=== PATIENT | female | born 1950 | race Hispanic/Latino ===

== ENCOUNTER 2025-01-24 08:19 | Observation (INO) | payer OTHER ==
--- NOTE | 2025-01-22 11:00 | EKG ---
[facility] Test Date: 2025-01-22 Test Time: 10:54:29 Pat Name: JACKELINE DICKENS Department: [facility] Room: Gender: F Medical Historian: [id number] : 1950 Requested By: AILYN CAMARILLO Order Number: [id number] Reading MD: Ravin Molina Measurements Intervals [place] Rate: 82 P: 80 PA: 134 QRS: 71 QRSD: 80 T: 68 QT: 362 QTc: 422 Interpretive Statements Sinus rhythm with frequent premature ventricular complexes No previous ECG available for comparison Electronically Signed On 01-22-2025 12:03:47 CDT by Ravin Molina Please click the below link to view image of tracing.
[2025-01-22 11:10] VITALS: BP 171/74; PULSE 85; RESP 17; TEMP 97.1
[2025-01-22 11:16] LABS: CREATININE 0.6 mg/dL (0.5-1.0); GLOMERULAR FILTR. RATE CALC 95.0 mL/min (>90); GLUCOSE,RANDOM 115.0 mg/dL (70-105); SODIUM SERUM 137.0 mmol/L (136-145); UREA NITROGEN, BLOOD 12.0 mg/dL (7-18)
[2025-01-22 11:17] LABS: IMMATURE GRANULOCYTE ABSOLUTE 0.08 K/uL (0-1); NUCLEATED RED BLOOD CELLS 0.0 % (0.0-0.19); PLATELET COUNT (AUTO) 315 K/uL (130-400); RED BLOOD CELL COUNT(AUTO) 4.13 MIL/uL (4.00-5.50); RED CELL DISTRIBUTION WIDTH 13.0 % (11.0-15.5); WHITE BLOOD COUNT (AUTO) 10.5 K/uL (4.8-10.8)
[2025-01-22 11:19] LABS: INR 1.05 (0.85-1.15)
--- NOTE | 2025-01-22 11:44 | NUR ---
RE: IS INITIAL IS INITIAL TEACHING DONE DURING PREOP BY RT JERE.
[2025-01-22 12:01] LABS: APPEARANCE,URINE CLEAR (CLEAR); GLUCOSE, URINE (UA) NEGATIVE (NEGATIVE); LEUKOCYTE ESTERASE ,URINE 500 Leu/uL (NEGATIVE); NITRATE,URINE NEGATIVE (NEGATIVE); OCCULT BLOOD,URINE NEGATIVE (NEGATIVE)
[2025-01-22 12:14] LABS: ADD UA MICROSCOPIC YES
[2025-01-22 12:19] LABS: SQUAMOUS EPITHELIAL CELL,UR RARE /HPF (0-2)
--- NOTE | 2025-01-23 13:27 | NUR ---
RE: LABS REPORTED UA/URINE CX RESULTS TO DR CAMARILLO. RECEIVED ORDERS FOR GENTAMICIN 240MG IV PIGGY BACK X 1 DOSE IN OR HOLDING.
[2025-01-24] VITALS (22 sets, daily range): BP systolic 121–157; BP diastolic 65–86; PULSE 90–119; RESP 14–20; TEMP 97.1–98.3
[~2025-01-24] VITALS: Ht 157.5 cm; Wt 67.1 kg
[~2025-01-24 08:19] MED LIST: GABA-529 PO; LOSA25TA41 PO; PRAV20TA59 PO
[2025-01-24] MEDS ORDERED: [UNRECOGNIZED DRUG - OTHER] IM SCH (09:00)
[2025-01-24] MEDS ORDERED: GENTAMICIN SULFATE IM SCH (09:00)
[2025-01-24] MEDS ORDERED: GENTAmicin SULFate 80 MG/2 ML 240 MG in 0.9%NACL 100ML 100 ML IV SCH (09:00)
[2025-01-24] MEDS: GENTAmicin SULFate 80 MG/2 ML 240 MG in 0.9%NACL 100ML 100 ML IV SCH (09:16)
[2025-01-24] MEDS ORDERED: LIDOCAINE PF 100MG/5ML (2%) SYRINGE 5ML ONE ×2 (10:47→13:59)
[2025-01-24] MEDS ORDERED: MIDAZOLAM HCL 1 MG/ML 2ML VIAL ONE (10:48)
[2025-01-24] MEDS ORDERED: GLYCOPYRROLATE 0.2 MG/ML 5 ML VIAL ONE (10:51)
[2025-01-24] MEDS ORDERED: NEOSTIGMINE METHYLSULFATE 1MG/ML IV ONE (10:51)
[2025-01-24] MEDS ORDERED: TRANEXAMIC ACID 1000MG/10ML ONE (12:13)
[2025-01-24] MEDS ORDERED: VANCOMYCIN 500MG+NS 100ML 100 ML IV ONE (13:44)
[2025-01-24] MEDS ORDERED: PoTASSium chl 10% ELIXIR 20MEQ 20 MEQ/15 ML UDCUP PO PRN (17:00)
[2025-01-24] MEDS ORDERED: ALBUMIN (HUMAN) 5% 250 ML IV ONE (17:08)
--- NOTE | 2025-01-24 17:28 | OP ---
Operative Note: DATE OF PROCEDURE: 01/24/25 SURGEON: AILYN CAMARILLO MD GOLD PROSPECTOR: [Ravin Guevara CFA] ANESTHESIA: [General anesthesia plus regional block] ANESTHESIOLOGIST/COMPOSITE LAMINATOR: [Rno Palmer CRNA] PREOPERATIVE DIAGNOSIS: [Left hip osteoarthritis] POSTOPERATIVE DIAGNOSIS: [Left hip osteoarthritis] IMPLANTS: [BIOMET. Taper lock femur size 11. 36 mm minus three modular femoral head. G7 cup size 54 mm with 120 mm screw. G7 high wall liner.] ESTIMATED BLOOD LOSS: [300 mL] INDICATIONS: [The patient is an elderly 74-year-old female with a history of pain to the left hip secondary to osteoarthritis that has a longer responded to conservative treatment. The patient has been admitted for a left total hip arthroplasty. Procedure understood, risks, benefits and possible complications and the patient agreed to sign the consent form] DESCRIPTION OF PROCEDURE: [After adequate general anesthesia was achieved and regional block obtained the patient was placed in the right lateral decubitus with the use of the beanbag and hip holders. The left lower extremity was prepped and draped in the usual manner after x-rays taken with the C-arm were used to check the position of the pelvis. After anatomic landmarks were identified we proceeded to make an incision in the skin centered on the greater trochanter and with a slight curve posteriorly followed by dissection of the subcutaneous tissue with the use of the Bovie cautery. The tensor fascia angela and gluteus manuel fascia were then opened longitudinally and the fibers of the gluteus muscle were split manually entering into the deep space applying then the Charnley retractor. A bone infusion needle was then inserted in the grater trochanter and 500 mg of vancomycin mixed with 50m mL od NS were injected in the bone. After the trochar was removed, the posterior border of the gluteus medius was identified and elevated and a curved Hohmann retractor was inserted underneath to be able to expose the gluteus minimus and short external rotators. The interval between the piriformis and gluteus minimus was open with the use of the Bovie cautery and then the rotators and capsule were detached from their femoral neck insertion and retracted posteriorly entering into the hip joint. At this point a marker was applied in the iliac bone just superior to the acetabulum with the use of drill guide to be able to check the offset and the length of the extremity at the level of the trochanter. Once the marker was made this was passed to the back table. We then proceeded to dislocate the hip by flexing and then internally rotating it and after retractors were applied to the base of the femoral neck we proceeded to use the oscillating saw to cut the neck at this level. At this point we removed the last broach and packed the canal for hemostasis and after the retractors were removed we proceeded then to bring the hip into extension. Hohmann retractors were then applied anteriorly and posteriorly to the acetabulum removing then the labrum and foveal tissue. We proceeded to ream the acetabulum medializing it obtaining adequate cortico- cancellous bone. After irrigation was of the acetabulum was completed we proceeded then to apply the final component and x-rays were taken correcting the orientation of the acetabulum to its final position. A cancellous aceabular screw was placed to secure the component and a trial liner was inserted. We then proceeded to use a box osteotome to enter the canal followed by insertion of the canal finder and then we proceeded to broach from size up to above-mentioned size. The trial femur and the trial femoral heads were applied, reducing the hip and taken x-rays until we identify the adequate size component using the marker to check the length and offset as well as clinically using the shuck test and measuring the leg length. Once we were satisfied we proceeded to remove the components from the femur and the trial liner after dislocating the hip and after copious irrigation of the joint was completed we then proceeded to apply t he final liner followed by the insertion of the final femoral stem femoral head. Once the hip was reduced we used a marker once again and the leg length and offset were normal and clinically the patient had normal length, negative shuck test and x-rays reveal adequate leg length compared to the opposite hip. The joint was then copiously irrigated with a diluted Betadine solution followed by irrigation with antibiotic solution with jet lavage once again and we then proceeded to take final x-rays and then to close the wound first with approximation of the capsule with #1 Vicryl simple stitches followed by approximation of the short external rotators with #2 PDS suture passing the sutures through the bone. The Charnley retractor was then removed and the glu teus manuel fascia was closed with a #1 Vicryl running stitch and the tensor fascia angela with #1 Vicryl crossed stitches. The subcutaneous tissue was closed with #2 Monocryl inverted stitches and the skin was closed with 3-0 Monocryl subcuticularly. A suction dressing was then applied to the incision and the drapes were then removed the patient being placed in the supine position. Leg length was checked and noted to be adequate. The patient was then transferred to a hospital bed and taken to recovery room for follow-up by anesthesia. There were no complications during the procedure.] AILYN CAMARILLO MD Jan 24, 2025 17:28
--- NOTE | 2025-01-24 18:30 | NUR ---
arrived from recovery vitals stable, 2L via nasal cannula 99%, family at bedside, patient alert and oriented x4, moderate pain to left hip
--- NOTE | 2025-01-24 18:36 | HMCIMG ---
EXAMINATION: Left hip COMPARISON: None provided. HISTORY: LT total hip arthroplasty FINDINGS: 3 fluoroscopic images were provided during left hip arthroplasty. Correlation with the operative report is recommended. IMPRESSION: As above. /[place]
[2025-01-24] MEDS: GENTAmicin SULFate 80 MG/2 ML 240 MG in 0.9%NACL 100ML 100 ML IV ONE (18:56)
[2025-01-24] MEDS: LACTATED RINGERS 1000ML 1,000 ML IV ONE (19:00)
[2025-01-24] MEDS: 0.9%NACL 1000ML 1,000 ML IV SCH (19:00)
[2025-01-24] MEDS: HYDROcodone/APAP 5/325 1 TAB TABLET PO PRN (19:18)
--- NOTE | 2025-01-24 19:30 | NUR ---
ASSESSMENT NOTE/TEACHING PATIENT AWAKE, ALERT, OX3, FAMILY AT BEDSIDE,OXYGEN AT 2 L N/C, ENCOURAGE DEEP BREATHING EXERCISES, IVF INFUSING WELL, DRESSING LEFT HIP WITH HOLLEY DRESSING WITH NEGATIVE PRESSURE, LEFT HIP APPLY ICE PACKS,BLE SCDS IN PLACE,ENCOURAGE DORSIFLEXION BLE,TEACH PATIENT AND FAMILY PLAN OF CARE, PAIN ,MANAGEMENT AND EXPECTED OUTCOME, BOTH VERBALIZE UNDERSTANDING VIA TEACH BACK
[2025-01-24] MEDS: ASPIRIN 81 MG EC TAB PO SCH (20:20)
[2025-01-25] VITALS (7 sets, daily range): BP systolic 108–147; BP diastolic 51–82; PULSE 93–116; RESP 17–20; TEMP 97.6–98.9; O2SAT 96
--- NOTE | 2025-01-25 05:00 | NUR ---
DAVIDA HIGUERA PATIENT AT BEDSIDE TOLERATED WELL, ICE PACK TO LEFT HIP, HOLLEY DRESSING LEFT HIP INTACT WITH NEGATIVE PRESSURE
[2025-01-25 05:01] LABS: NUCLEATED RED BLOOD CELLS 0.0 % (0.0-0.19); PLATELET COUNT (AUTO) 211.0 K/uL (130-400); RED BLOOD CELL COUNT(AUTO) 2.8 MIL/uL (4.00-5.50); RED CELL DISTRIBUTION WIDTH 13.1 % (11.0-15.5); WHITE BLOOD COUNT (AUTO) 7.8 K/uL (4.8-10.8)
[2025-01-25 05:26] LABS: CREATININE 0.7 mg/dL (0.5-1.0); GLOMERULAR FILTR. RATE CALC 91.0 mL/min (>90); GLUCOSE,RANDOM 109.0 mg/dL (70-105); SODIUM SERUM 137.0 mmol/L (136-145); UREA NITROGEN, BLOOD 11.0 mg/dL (7-18)
--- NOTE | 2025-01-25 08:14 | PN ---
Ortho postop day one. The patient is awake alert and oriented. She is seated in a chair enjoying her breakfast. Reports adequate pain control. Vital signs have been stable. Afebrile. Voiding on her own. Laboratory results reviewed. Noted to have a drop in hemoglobin and hematocrit as expected after total hip arthroplasty. Patient is currently asymptomatic but we will continue to observe and address per protocol as necessary. Reinforced incentive spirometry. Dressing is intact. Danyelle dressing flashing green. Lower extremities with the SCD sleeves currently present but not on. She is pending physical therapy this morning. Anticipated discharge goal is skilled nurse facility. Assessment: Status post left total hip arthroplasty. Acute postoperative blood loss anemia addressed with the protocol as necessary. Plan: Continue with Dr. Colbert total hip arthroplasty protocol and discharge planning. Acute postoperative blood loss anemia addressed with the protocol Vitals/Labs Vital Signs Date Time Temp Pulse Resp B/P (MAP) Pulse Ox O2 Delivery O2 Flow Rate FiO2 01/25/25 04:00 98.2 116 20 143/72 99 Nasal Cannula 2.0 01/24/25 20:00 28 Laboratory Tests 01/25/25 04:27 Medications Current Medications Gentamicin Sulfate 240 each ONCE ONCE IV; Start 01/24/25 at 07:00; Stop 01/23/25 at 13:28; Status DC Gentamicin Sulfate 240 mg/ Sodium Chloride 100 ml @ 200 mls/hr ONCE ONCE IV; Start 01/24/25 at 07:00; Stop 01/24/25 at 07:29; Status DC Cefazolin Sodium 2 gm STK-MED ONCE .ROUTE; Start 01/24/25 at 08:39; Stop 01/24/25 at 08:39; Status DC Lactated Ringer's 1,000 ml @ As Directed STK-MED ONCE IV; Start 01/24/25 at 08:39; Stop 01/24/25 at 08:39; Status DC Gentamicin Sulfate 180 mg/ Sodium Chloride 100 ml @ 200 mls/hr Q12H IM; Start 01/24/25 at 09:00; Stop 01/26/25 at 08:59; Status Cancel Gentamicin Sulfate 240 mg/ Sodium Chloride 100 ml @ 200 mls/hr Q12H IV; Start 01/24/25 at 09:00; Stop 01/24/25 at 08:52; Status DC Gentamicin Sulfate 240 mg/ Sodium Chloride 100 ml @ 200 mls/hr ONCE IV Last administered on 01/24/25at 09:16; Start 01/24/25 at 09:00; Stop 01/24/25 at 12:00; Status DC Lidocaine HCl 100 mg STK-MED ONCE .ROUTE; Start 01/24/25 at 10:47; Stop 01/24/25 at 10:47; Status DC Propofol 200 mg STK-MED ONCE IV; Start 01/24/25 at 10:48; Stop 01/24/25 at 10:48; Status DC Midazolam HCl 2 mg STK-MED ONCE .ROUTE; Start 01/24/25 at 10:48; Stop 01/24/25 at 10:48; Status DC Fentanyl Citrate 100 mcg STK-MED ONCE .ROUTE; Start 01/24/25 at 10:49; Stop 01/24/25 at 10:49; Status DC Ondansetron HCl 4 mg STK-MED ONCE .ROUTE; Start 01/24/25 at 10:49; Stop 01/24/25 at 10:49; Status DC Dexamethasone Sodium Phosphate 10 mg STK-MED ONCE .ROUTE; Start 01/24/25 at 10:49; Stop 01/24/25 at 10:49; Status DC Rocuronium [place] 50 mg STK-MED ONCE .ROUTE; Start 01/24/25 at 10:49; Stop 01/24/25 at 10:49; Status DC Glycopyrrolate 1 mg STK-MED ONCE .ROUTE; Start 01/24/25 at 10:51; Stop 01/24/25 at 10:51; Status DC Neostigmine Methylsulfate 10 mg STK-MED ONCE IV; Start 01/24/25 at 10:51; Stop 01/24/25 at 10:51; Status DC Phenylephrine HCl 10 mg STK-MED ONCE IV; Start 01/24/25 at 10:51; Stop 01/24/25 at 10:51; Status DC Tranexamic Acid 1,000 mg STK-MED ONCE .ROUTE; Start 01/24/25 at 12:13; Stop 01/24/25 at 12:14; Status DC Cefazolin Sodium 1 gm STK-MED ONCE .ROUTE; Start 01/24/25 at 12:14; Stop 01/24/25 at 12:14; Status DC Fentanyl Citrate 100 mcg STK-MED ONCE .ROUTE; Start 01/24/25 at 13:39; Stop 01/24/25 at 13:40; Status DC Vancomycin HCl 100 ml @ As Directed STK-MED ONCE IV; Start 01/24/25 at 13:44; Stop 01/24/25 at 13:44; Status DC Lidocaine HCl 100 mg STK-MED ONCE .ROUTE; Start 01/24/25 at 13:59; Stop 01/24/25 at 14:00; Status DC Propofol 200 mg STK-MED ONCE IV; Start 01/24/25 at 14:21; Stop 01/24/25 at 14:21; Status DC Rocuronium [place] 50 mg STK-MED ONCE .ROUTE; Start 01/24/25 at 14:28; Stop 01/24/25 at 14:28; Status DC Cefazolin Sodium 2 gm STK-MED ONCE IVPB Last administered on 01/24/25at 14:00; Start 01/24/25 at 14:00; Stop 01/24/25 at 15:04; Status DC Tranexamic Acid 1,000 mg STK-MED ONCE IV Last administered on 01/24/25at 14:15; Start 01/24/25 at 14:15; Stop 01/24/25 at 15:05; Status DC Cefazolin Sodium 3 gm STK-MED ONCE IRRIG Last administered on 01/24/25at 14:55; Start 01/24/25 at 14:55; Stop 01/24/25 at 15:05; Status DC Albumin Human 250 ml @ As Directed STK-MED ONCE IV; Start 01/24/25 at 17:08; Stop 01/24/25 at 17:08; Status DC Sodium Chloride 1,000 ml @ 100 mls/hr Q10H IV Last administered on 01/24/25at 19:00; Start 01/24/25 at 17:00; Stop 01/25/25 at 07:49; Status DC Polyethylene Glycol 17 gm DAILY PO; Start 01/25/25 at 09:00; Stop 02/24/25 at 08:59 Bisacodyl 10 mg DAILY PRN RC; Start 01/27/25 at 17:00; Stop 02/26/25 at 16:59 Ketorolac Tromethamine 15 mg Q6H PRN IV Last administered on 01/25/25at 03:52; Start 01/24/25 at 17:00; Stop 01/29/25 at 16:59 Ferrous Fumarate 324 mg DAILY PRN PO; Start 01/24/25 at 17:00; Stop 02/23/25 at 16:59 Temazepam 15 mg HS PRN PO; Start 01/24/25 at 17:00; Stop 02/23/25 at 16:59 Calcium Carbonate 500 mg Q12H PRN PO; Start 01/24/25 at 17:00; Stop 02/23/25 at 16:59 Diphenhydramine HCl 25 mg Q6H PRN IVP; Start 01/24/25 at 17:00; Stop 02/23/25 at 16:59 Ondansetron HCl 4 mg Q6H PRN IVP Last administered on 01/25/25at 07:59; Start 01/24/25 at 17:00; Stop 02/23/25 at 16:59 Cefazolin Sodium 2 gm Q8H IVP Last administered on 01/25/25at 05:54; Start 01/24/25 at 22:00; Stop 01/25/25 at 06:01; Status DC Potassium Chloride 100 ml @ 100 mls/hr AD PRN IV; Start 01/24/25 at 17:00; Stop 02/23/25 at 16:59 Potassium Chloride 20 meq AD PRN PO; Start 01/24/25 at 17:00; Stop 02/23/25 at 16:59 Potassium Chloride 20 meq AD PRN PO; Start 01/24/25 at 17:00; Stop 02/23/25 at 16:59 Acetaminophen/ Hydrocodone Bitart Q4H PRN PO Last administered on 01/25/25at 06:46; Start 01/24/25 at 17:00; Stop 01/29/25 at 16:59 Aspirin 81 mg BID PO Last administered on 01/24/25at 20:20; Start 01/24/25 at 21:00; Stop 02/23/25 at 20:59 Trimethoprim/ Sulfamethoxazole 1 tab BID PO Last administered on 01/24/25at 20:20; Start 01/24/25 at 21:00; Stop 02/03/25 at 20:59 Fentanyl Citrate 100 mcg STK-MED ONCE .ROUTE Last administered on 01/24/25at 18:07; Start 01/24/25 at 17:45; Stop 01/24/25 at 17:45; Status DC IMELDA WEEMS NP Jan 25, 2025 08:14
[2025-01-25] MEDS: CALCIUM CARB 500MG PO PRN (10:01)
[2025-01-25] MEDS: FERROUS FUMARATE 324 MG TABLET PO PRN (10:01)
[2025-01-25] MEDS: PoTASSium chloRIDE 20MEQ ER 20 MEQ ERTAB PO PRN (12:50)
--- NOTE | 2025-01-25 18:51 | NUR ---
REFERRAL SENT TO [facility]
[2025-01-26] VITALS: BP 126/76; PULSE 112; RESP 20; TEMP 98.8
[2025-01-26 04:00] VITALS: BP 120/59; PULSE 112; RESP 20; TEMP 98.2
[2025-01-26 08:00] VITALS: BP 136/54; PULSE 113; RESP 18; TEMP 98.8; O2SAT 94
--- NOTE | 2025-01-26 10:19 | PN ---
Ortho postop day two The patient is awake alert and oriented. She is seated in a chair. daughter present Reports adequate pain control. Vital signs have been stable. Afebrile. Voiding on her own. She is passing gas but no BM yet. She is currently drinking Prune juice. Have communicated with RN to give lactulose if no BM. Reinforced incentive spirometry. Dressing is intact. Danyelle dressing flashing green. Lower extremities with the SCD sleeves currently present but not on. She is pending physical therapy this morning. Did well with PT yesterday 30ft and 60ft Anticipated discharge goal is skilled nurse facility. WOH still pending Assessment: Status post left total hip arthroplasty. Plan: Continue with Dr. Colbert total hip arthroplasty protocol and discharge planning. Vitals/Labs Vital Signs Date Time Temp Pulse Resp B/P (MAP) Pulse Ox O2 Delivery O2 Flow Rate FiO2 01/26/25 08:00 98.8 113 18 136/54 92 Room Air 01/25/25 20:00 0 21 Medications Current Medications Gentamicin Sulfate 240 each ONCE ONCE IV; Start 01/24/25 at 07:00; Stop 01/23/25 at 13:28; Status DC Gentamicin Sulfate 240 mg/ Sodium Chloride 100 ml @ 200 mls/hr ONCE ONCE IV; Start 01/24/25 at 07:00; Stop 01/24/25 at 07:29; Status DC Cefazolin Sodium 2 gm STK-MED ONCE .ROUTE; Start 01/24/25 at 08:39; Stop 01/24/25 at 08:39; Status DC Lactated Ringer's 1,000 ml @ As Directed STK-MED ONCE IV; Start 01/24/25 at 08:39; Stop 01/24/25 at 08:39; Status DC Gentamicin Sulfate 180 mg/ Sodium Chloride 100 ml @ 200 mls/hr Q12H IM; Start 01/24/25 at 09:00; Stop 01/26/25 at 08:59; Status Cancel Gentamicin Sulfate 240 mg/ Sodium Chloride 100 ml @ 200 mls/hr Q12H IV; Start 01/24/25 at 09:00; Stop 01/24/25 at 08:52; Status DC Gentamicin Sulfate 240 mg/ Sodium Chloride 100 ml @ 200 mls/hr ONCE IV Last administered on 01/24/25at 09:16; Start 01/24/25 at 09:00; Stop 01/24/25 at 12:00; Status DC Lidocaine HCl 100 mg STK-MED ONCE .ROUTE; Start 01/24/25 at 10:47; Stop 01/24/25 at 10:47; Status DC Propofol 200 mg STK-MED ONCE IV; Start 01/24/25 at 10:48; Stop 01/24/25 at 10:48; Status DC Midazolam HCl 2 mg STK-MED ONCE .ROUTE; Start 01/24/25 at 10:48; Stop 01/24/25 at 10:48; Status DC Fentanyl Citrate 100 mcg STK-MED ONCE .ROUTE; Start 01/24/25 at 10:49; Stop 01/24/25 at 10:49; Status DC Ondansetron HCl 4 mg STK-MED ONCE .ROUTE; Start 01/24/25 at 10:49; Stop 01/24/25 at 10:49; Status DC Dexamethasone Sodium Phosphate 10 mg STK-MED ONCE .ROUTE; Start 01/24/25 at 10:49; Stop 01/24/25 at 10:49; Status DC Rocuronium [place] 50 mg STK-MED ONCE .ROUTE; Start 01/24/25 at 10:49; Stop 01/24/25 at 10:49; Status DC Glycopyrrolate 1 mg STK-MED ONCE .ROUTE; Start 01/24/25 at 10:51; Stop 01/24/25 at 10:51; Status DC Neostigmine Methylsulfate 10 mg STK-MED ONCE IV; Start 01/24/25 at 10:51; Stop 01/24/25 at 10:51; Status DC Phenylephrine HCl 10 mg STK-MED ONCE IV; Start 01/24/25 at 10:51; Stop 01/24/25 at 10:51; Status DC Tranexamic Acid 1,000 mg STK-MED ONCE .ROUTE; Start 01/24/25 at 12:13; Stop 01/24/25 at 12:14; Status DC Cefazolin Sodium 1 gm STK-MED ONCE .ROUTE; Start 01/24/25 at 12:14; Stop 01/24/25 at 12:14; Status DC Fentanyl Citrate 100 mcg STK-MED ONCE .ROUTE; Start 01/24/25 at 13:39; Stop 01/24/25 at 13:40; Status DC Vancomycin HCl 100 ml @ As Directed STK-MED ONCE IV; Start 01/24/25 at 13:44; Stop 01/24/25 at 13:44; Status DC Lidocaine HCl 100 mg STK-MED ONCE .ROUTE; Start 01/24/25 at 13:59; Stop 01/24/25 at 14:00; Status DC Propofol 200 mg STK-MED ONCE IV; Start 01/24/25 at 14:21; Stop 01/24/25 at 14:21; Status DC Rocuronium [place] 50 mg STK-MED ONCE .ROUTE; Start 01/24/25 at 14:28; Stop 01/24/25 at 14:28; Status DC Cefazolin Sodium 2 gm STK-MED ONCE IVPB Last administered on 01/24/25at 14:00; Start 01/24/25 at 14:00; Stop 01/24/25 at 15:04; Status DC Tranexamic Acid 1,000 mg STK-MED ONCE IV Last administered on 01/24/25at 14:15; Start 01/24/25 at 14:15; Stop 01/24/25 at 15:05; Status DC Cefazolin Sodium 3 gm STK-MED ONCE IRRIG Last administered on 01/24/25at 14:55; Start 01/24/25 at 14:55; Stop 01/24/25 at 15:05; Status DC Albumin Human 250 ml @ As Directed STK-MED ONCE IV; Start 01/24/25 at 17:08; Stop 01/24/25 at 17:08; Status DC Sodium Chloride 1,000 ml @ 100 mls/hr Q10H IV Last administered on 01/24/25at 19:00; Start 01/24/25 at 17:00; Stop 01/25/25 at 07:49; Status DC Polyethylene Glycol 17 gm DAILY PO Last administered on 01/26/25at 08:47; Start 01/25/25 at 09:00; Stop 02/24/25 at 08:59 Bisacodyl 10 mg DAILY PRN RC; Start 01/27/25 at 17:00; Stop 02/26/25 at 16:59 Ketorolac Tromethamine 15 mg Q6H PRN IV Last administered on 01/25/25at 16:54; Start 01/24/25 at 17:00; Stop 01/29/25 at 16:59 Ferrous Fumarate 324 mg DAILY PRN PO Last administered on 01/25/25at 10:01; Start 01/24/25 at 17:00; Stop 02/23/25 at 16:59 Temazepam 15 mg HS PRN PO; Start 01/24/25 at 17:00; Stop 02/23/25 at 16:59 Calcium Carbonate 500 mg Q12H PRN PO Last administered on 01/25/25at 10:01; Start 01/24/25 at 17:00; Stop 02/23/25 at 16:59 Diphenhydramine HCl 25 mg Q6H PRN IVP; Start 01/24/25 at 17:00; Stop 02/23/25 at 16:59 Ondansetron HCl 4 mg Q6H PRN IVP Last administered on 01/25/25at 07:59; Start 01/24/25 at 17:00; Stop 02/23/25 at 16:59 Cefazolin Sodium 2 gm Q8H IVP Last administered on 01/25/25at 05:54; Start 01/24/25 at 22:00; Stop 01/25/25 at 06:01; Status DC Potassium Chloride 100 ml @ 100 mls/hr AD PRN IV; Start 01/24/25 at 17:00; Stop 02/23/25 at 16:59 Potassium Chloride 20 meq AD PRN PO; Start 01/24/25 at 17:00; Stop 02/23/25 at 16:59 Potassium Chloride 20 meq AD PRN PO Last administered on 01/25/25at 16:54; Start 01/24/25 at 17:00; Stop 02/23/25 at 16:59 Acetaminophen/ Hydrocodone Bitart Q4H PRN PO Last administered on 01/26/25at 08:48; Start 01/24/25 at 17:00; Stop 01/29/25 at 16:59 Aspirin 81 mg BID PO Last administered on 01/26/25at 08:47; Start 01/24/25 at 21:00; Stop 02/23/25 at 20:59 Trimethoprim/ Sulfamethoxazole 1 tab BID PO Last administered on 01/26/25at 08:47; Start 01/24/25 at 21:00; Stop 02/03/25 at 20:59 Fentanyl Citrate 100 mcg STK-MED ONCE .ROUTE Last administered on 01/24/25at 18:07; Start 01/24/25 at 17:45; Stop 01/24/25 at 17:45; Status DC Gabapentin 200 mg BID PO; Start 01/26/25 at 21:00; Stop 02/25/25 at 20:59 Losartan Potassium 25 mg DAILY PO; Start 01/27/25 at 09:00; Stop 02/26/25 at 08:59 Atorvastatin Calcium 5 mg HS PO; Start 01/26/25 at 21:00; Stop 02/25/25 at 20:59 IMELDA WEEMS NP Jan 26, 2025 10:19
[2025-01-26 12:00] VITALS: BP 131/65; PULSE 106; RESP 18; TEMP 98.7
[2025-01-26] MEDS ORDERED: HYDR-4060 PO (12:55)
[2025-01-26] MEDS ORDERED: APIX2.5T PO (12:55)
[2025-01-26] MEDS ORDERED: sulfaMETHOX-TMP DS 800/160 TAB PO (12:55)
--- NOTE | 2025-01-26 12:58 | DS ---
DISCHARGE SUMMARY [ ] AILYN CAMARILLO MD Jan 26, 2025 12:58
--- NOTE | 2025-01-26 15:30 | NUR ---
DISCHARGE discharge paperwork given to patient, educated patient regarding diet, activity, medications, follow up visits, signs and symptoms to report/return to ER. Answered patient questions, patient and family understood. Faxed paperwork over to [facility]. Gave report to LYNN Barahona. Facility van to come for patient transport
--- NOTE | 2025-01-26 16:20 | NUR ---
patient picked up by [facility] staff/[facility]i
== END 2025-01-26 16:20 | disposition home or self-care (01) ==
LOC: DAH 08:19 → DAHIP 08:20 → DAH 08:20 → 4DH 18:47
PROVIDERS: ADMIT Orthopaedic Surgery; ATTEND Orthopaedic Surgery
DX: M16.12 Unilateral primary osteoarthritis, left hip (principal); I10 Essential (primary) hypertension; E78.00 Pure hypercholesterolemia, unspecified; G89.29 Other chronic pain; Z79.899 Other long term (current) drug therapy; Z86.2 Personal history of diseases of the blood and blood-forming organs and certain disorders involving the immune mechanism
CPT/HCPCS: 80048 ×2; 85025; 85610; 85730; 86850; 86900; 86901; 87086 ×2; 81001; 36415 ×2; 93005; 87641; 27130; 96365; 96366; 96375 ×2; 87186; 88311; 88304; 73503; 97161; 97530 ×6; 96376; 85027; 97116 ×3; 82948; G0378 ×47; A4223 ×2; A4663; J7030; C1713 ×3; P9045; J7120; J3010 ×3; J0690 ×6; J3490 ×5; J1100; J2003 ×2; J1580; J2250; J2704; J2405 ×2; J2710; J1885 ×4; J2371; J3373; A9272; A4649 ×4; A4930 ×3; C1776; A5120; A4215; A4213; A4222; A4221; A4216